=== PATIENT | male | born 1955 | race Caucasian/White ===

== ENCOUNTER 2016-09-16 10:49 | Emergency (ER) | payer OTHER ==
[2016-09-16 11:27] LABS: Hematocrit 43.4 % (42.0-52.0); Mean Corpuscular Hemoglobin 28.4 pg (27-31); Mean Corpuscular Hgb Conc 32.3 g/dl (32-36); Mean Platelet Volume 10.5 fl (6.0-9.5); Neutrophil # 14.5 K/mm3 (1.3-6.0); Neutrophil % 78.2 % (42-75.0); Platelet Count 324 K/mm3 (150-450); Red Blood Count 4.93 M/mm3 (4.7-6.0); Red Cell Distribution Width 13.7 % (11.5-14.0); White Blood Count 18.6 K/mm3 (4.0-10.5)
--- OUTSIDE RECORDS SUMMARY | 2016-09-16 11:27 | XMS REPORT | Summary of Care ---
:1955 Author Organization [facility] Address [address] [place] [address] Care Team Providers Name Role Phone Brinda Lafleur Primary Care Physician Encounter Date(s): 04/30/16 - 04/30/[address] [facility], [address] [place], [place] [address] Discharge Diagnosis: COPD, severe Discharge Disposition: Discharged to Home or Self Care Attending Physician: Rupa Graves MD Referring Physician: Brinda Lafleur DO Vital Signs Most recent to oldest [Reference Range]: 1 Temperature Tympanic [36.6-38.1 DegC] 37 DegC (04/30/16 8:14 AM) Temperature C to F 98.6 (04/30/16 8:14 AM) Peripheral Pulse Rate [60-100 bpm] 92 bpm (04/30/16 8:14 AM) Respiratory Rate [12-20 br/min] 18 br/min (04/30/16 8:14 AM) SpO2 [90-100 %] 95 % (04/30/16 8:14 AM) SpO2 Location Left hand (04/30/16 8:14 AM) Blood Pressure [90-130/60-90 mmHg] 162/101mmHg *HI* (04/30/16 8:14 AM) Mean Arterial Pressure, Cuff 121 mmHg (04/30/16 8:14 AM) Most recent to oldest [Reference Range]: 1 Height/Length Measured 186 cm (04/30/16 8:14 AM) Weight Dosing 110.1 kg (04/30/16 8:14 AM) Weight Measured 110.1 kg (04/30/16 8:14 AM) BSA Measured 2.34 m2 (04/30/16 8:14 AM) Body Mass Index Measured 31.82 kg/m2 (04/30/16 8:14 AM) Problem List Condition Effective Dates Status Health Status Informant Acute myocardial infarction(Confirmed) Active Chest pain(Confirmed) Active Elevated PSA(Confirmed) Active Allergies, Adverse Reactions, Alerts Substance Reaction Severity Status penicillins Hives Mild Active Plavix Hives Active Medications Anoro Ellipta 62.5 mcg-25 mcg/inh inhalation powder 1 puff(s), Inhale, Daily, # 1 EA, 11 Refill(s), Start Date: 04/30/16 9:03:00 [employer] , Samples: 2, Pharmacy: [place], [place], [id number], 06/23/17 Start Date: 04/30/16 Stop Date: 04/25/17 Status: Orderedaspirin 325 mg oral tablet 1 tab(s), Oral, Daily, 0 Refill(s) Start Date: 07/28/13 Status: OrderedChantix Starter Pack 0.5 mg-1 mg oral tablet 1 tab(s), Oral, BID, as directed on package labeling, # 53 tab(s), 0 Refill(s), Start Date: 04/30/16 9:06:00 [employer], Pharmacy: [place], [place] Special Instructions: as directed on package labeling Start Date: 04/30/16 Status: OrderedCrestor 20 mg oral tablet 1 tab(s), Oral, HS, 0 Refill(s) Start Date: 07/28/13 Status: Orderedfluticasone 50 mcg/inh nasal spray 2 spray(s), Nasal, Daily, # 1 EA, 5 Refill(s), Start Date: 04/30/16 9:08:00 [employer] , Pharmacy: [place], [place] Start Date: 04/30/16 Stop Date: 10/27/16 Status: Orderedlisinopril 2.5 mg oral tablet 1 tab(s), Oral, Daily, # 30 tab(s), 0 Refill(s), Start Date: 04/30/16 8:19:00 [employer] Start Date: 04/30/16 Status: OrderedMedrol Dosepak 4 mg oral tablet 1 packet(s), Oral, Per Package Label, as directed on package labeling, # 21 tab( s), 0 Refill(s), Start Date: 04/30/16 9:07:00 [employer], Pharmacy: [place], [place] Special Instructions: as directed on package labeling Start Date: 04/30/16 Stop Date: 05/06/16 Status: Orderedmetoprolol tartrate 12.5 mg 1/2 of 25 mg oral tablet 0 Refill(s), Start Date: 04/30/16 8:18:00 [employer] Start Date: 04/30/16 Status: OrderedNexIUM 40 mg oral delayed release capsule 1 cap(s), Oral, Daily, 0 Refill(s) Start Date: 07/28/13 Status: Orderednitroglycerin 0.4 mg sublingual tablet 1 tab(s), SL, q5min, PRN for chest pain, If chest pain not relieved within 5 minutes of taking the 1st dose, seek immediate medical attention, # 100 tab(s), 0 Refill(s) Special Instructions: If chest pain not relieved within 5 minutes of taking the 1st dose, seek immediate medical attention Start Date: 07/28/13 Status: OrderedProAir HFA 90 mcg/inh inhalation aerosol 2 puff(s), Inhale, QID, PRN as needed for wheezing, # 1 EA, 6 Refill(s), Start Date: 04/30/16 9:06:00 [employer], Pharmacy: [place], [place] Start Date: 04/30/16 Stop Date: 11/26/16 Status: OrderedPulmicort Flexhaler 180 mcg/inh inhalation powder 180 mcg=, Inhale, BID, # 1 EA, 11 Refill(s), Samples: 2, Pharmacy: [place], [place] Start Date: 04/30/16 Stop Date: 04/25/17 Status: OrderedSymbicort 80 mcg-4.5 mcg/inh inhalation aerosol 2 puff(s), Inhale, BID, # 7 gm, 0 Refill(s), Start Date: 04/30/16 8:19:00 [employer] Start Date: 04/30/16 Stop Date: 04/30/16 Status: CompletedZithromax Z-Froilan 250 mg oral tablet 1 packet(s), Oral, Per Package Label, as directed on package labeling, # 6 tab(s ), 0 Refill(s), Start Date: 04/30/16 9:07:00 [employer], Pharmacy: [place], [place] Special Instructions: as directed on package labeling Start Date: 04/30/16 Stop Date: 05/05/16 Status: Ordered Results Patient Viewable Results Most recent to oldest [Reference Range]: 1 FIO2 21 % (04/30/16 8:14 AM) Immunizations Vaccine Date Refusal Reason pneumococcal 23-polyvalent vaccine 11/03/12 Procedures Procedure Date Related Diagnosis Body Site Appendectomy Number of stent(s) 3 Social History No data available for this section Assessment and Plan No data available for this section
--- OUTSIDE RECORDS SUMMARY | 2016-09-16 11:27 | XMS REPORT | Summary of Care ---
:1955 Author Organization [facility] Address [facility] [place] [address]- Care Team Providers Name Role Phone CynthiaGina hesteromero Cervantes Primary Care Physician Encounter Date(s): 05/03/16 - 05/03/16 [facility] [address] [place] [id number] Discharge Disposition: Discharged to Home or Self Care Attending Physician: Rupa Graves MD Admitting Physician: Rupa Graves MD Vital Signs No data available for this section Problem List Condition Effective Dates Status Health Status Informant Acute myocardial infarction(Confirmed) Active Chest pain(Confirmed) Active Elevated PSA(Confirmed) Active Allergies, Adverse Reactions, Alerts Substance Reaction Severity Status penicillins Hives Mild Active Plavix Hives Active Medications Anoro Ellipta 62.5 mcg-25 mcg/inh inhalation powder 1 puff(s), Inhale, Daily, # 1 EA, 11 Refill(s), Start Date: 04/30/16 9:03:00 [employer]IST , Samples: 2, Pharmacy: [facility] [place], [id number], 06/23/17 Start Date: 04/30/16 Stop Date: 04/25/17 Status: Orderedaspirin 325 mg oral tablet 1 tab(s), Oral, Daily, 0 Refill(s) Start Date: 07/28/13 Status: OrderedChantix Starter Pack 0.5 mg-1 mg oral tablet 1 tab(s), Oral, BID, as directed on package labeling, # 53 tab(s), 0 Refill(s), Start Date: 04/30/16 9:06:00 [employer], Pharmacy: [facility] [place] Special Instructions: as directed on package labeling Start Date: 04/30/16 Status: OrderedCrestor 20 mg oral tablet 1 tab(s), Oral, HS, 0 Refill(s) Start Date: 07/28/13 Status: Orderedfluticasone 50 mcg/inh nasal spray 2 spray(s), Nasal, Daily, # 1 EA, 5 Refill(s), Start Date: 04/30/16 9:08:00 [employer] , Pharmacy: [place], [place] Start Date: 04/30/16 Stop Date: 10/27/16 Status: Orderedlisinopril 2.5 mg oral tablet 1 tab(s), Oral, Daily, # 30 tab(s), 0 Refill(s), Start Date: 04/30/16 8:19:00 [employer] Start Date: 04/30/16 Status: OrderedMedrol Dosepak 4 mg oral tablet 1 packet(s), Oral, Per Package Label, as directed on package labeling, # 21 tab( s), 0 Refill(s), Start Date: 04/30/16 9:07:00 [employer], Pharmacy: [place], [place] Special Instructions: as directed on package labeling Start Date: 04/30/16 Stop Date: 05/06/16 Status: Orderedmetoprolol tartrate 12.5 mg 1/2 of 25 mg oral tablet 0 Refill(s), Start Date: 04/30/16 8:18:00 [employer] Start Date: 04/30/16 Status: OrderedNexIUM 40 mg [...] EA, 6 Refill(s), Start Date: 04/30/16 9:06:00 [employer], Pharmacy: [place] Start Date: 04/30/16 Stop Date: 11/26/16 Status: OrderedPulmicort Flexhaler 180 mcg/inh inhalation powder 180 mcg=, Inhale, BID, # 1 EA, 11 Refill(s), Samples: 2, Pharmacy: [place], [place] Start Date: 04/30/16 Stop Date: 04/25/17 Status: OrderedSymbicort 80 mcg-4.5 mcg/inh inhalation aerosol 2 puff(s), Inhale, BID, # 7 gm, 0 Refill(s), Start Date: 04/30/16 8:19:00 [employer] Start Date: 04/30/16 Stop Date: 04/30/16 Status: CompletedZithromax Z-Froilan 250 mg oral tablet 1 packet(s), Oral, Per Package Label, as directed on package labeling, # 6 tab(s ), 0 Refill(s), Start Date: 04/30/16 9:07:00 [employer], Pharmacy: [place], [place] Special Instructions: as directed on package labeling Start Date: 04/30/16 Stop Date: 05/05/16 Status: Ordered Results No data available for this section Immunizations Vaccine Date Refusal Reason pneumococcal 23-polyvalent vaccine 11/03/12 Procedures Procedure Date Related Diagnosis Body Site Appendectomy Number of stent(s) 3 Social History No data available for this section Assessment and Plan No data available for this section
--- OUTSIDE RECORDS SUMMARY | 2016-09-16 11:27 | XMS REPORT | Summary of Care ---
:1955 Author Organization [facility] Address [address] [place] [address] Care Team Providers Name Role Phone Brinda Lafleur Primary Care Physician Encounter Date(s): 05/15/16 - 05/15/16 [facility], [address] [place], [place] [address] Discharge Disposition: 01 Discharged to Home or Self Care Attending Physician: Rupa Graves MD Referring Physician: Rupa Graves MD Vital Signs Most recent to oldest [Reference Range]: 1 Temperature Tympanic [36.6-38.1 DegC] 36.7 DegC (05/15/16 2:07 PM) Temperature C to F 98.1 (05/15/16 2:07 PM) Peripheral Pulse Rate [60-100 bpm] 91 bpm (05/15/16 2:07 PM) Respiratory Rate [12-20 br/min] 18 br/min (05/15/16 2:07 PM) SpO2 [90-100 %] 96 % (05/15/16 2:07 PM) SpO2 Location Right hand (05/15/16 2:07 PM) Blood Pressure [90-130/60-90 mmHg] 130/83mmHg (05/15/16 2:07 PM) Mean Arterial Pressure, Cuff 99 mmHg (05/15/16 2:07 PM) Most recent to oldest [Reference Range]: 1 Weight Dosing 111.0 kg (05/15/16 2:07 PM) Weight Measured 111.0 kg (05/15/16 2:07 PM) Problem List Condition Effective Dates Status Health Status Informant Acute myocardial infarction(Confirmed) Active Chest pain(Confirmed) Active Elevated PSA(Confirmed) Active Allergies, Adverse Reactions, Alerts Substance Reaction Severity Status penicillins Hives Mild Active Plavix Hives Active Medications Anoro Ellipta 62.5 mcg-25 mcg/inh inhalation powder 1 puff(s), Inhale, Daily, # 1 EA, 11 Refill(s), Start Date: 04/30/16 9:03:00 FLORIST , Samples: 2, Pharmacy: [place], [place], [id number], 06/23/17 Start Date: 04/30/16 Stop Date: 04/25/17 Status: Orderedaspirin 325 mg oral tablet 1 tab(s), Oral, Daily, 0 Refill(s) Start Date: 07/28/13 Status: OrderedChantix Starter Pack 0.5 mg-1 mg oral tablet 1 tab(s), Oral, BID, as directed on package labeling, # 53 tab(s), 0 Refill(s), Start Date: 04/30/16 9:06:00 FLORIST, Pharmacy: [place], [place] Special Instructions: as directed on package labeling Start Date: 04/30/16 Stop Date: 05/15/16 Status: DiscontinuedCrestor 20 mg oral tablet 2 tab(s), Oral, HS, 0 Refill(s), Start Date: 07/28/13 14:36:00 CDT Start Date: 07/28/13 Status: Orderedfluticasone 50 mcg/inh nasal spray 2 spray(s), Nasal, Daily, # 1 EA, 5 Refill(s), Start Date: 04/30/16 9:08:00 FLORIST , Pharmacy: [place], [place] Start Date: 04/30/16 Stop Date: 10/27/16 Status: Orderedlisinopril 2.5 mg oral tablet 1 tab(s), Oral, Daily, # 30 tab(s), 0 Refill(s), Start Date: 04/30/16 8:19:00 [employer]ORIST Start Date: 04/30/16 Status: OrderedMedrol Dosepak 4 mg oral tablet 1 packet(s), Oral, Per Package Label, as directed on package labeling, # 21 tab( s), 0 Refill(s), Start Date: 04/30/16 9:07:00 FLORIST, Pharmacy: [place], [place] Special Instructions: as directed on package labeling Start Date: 04/30/16 Stop Date: 05/15/16 Status: Completedmetoprolol tartrate 12.5 mg 1/2 of 25 mg oral tablet 0 Refill(s), Start Date: 04/30/16 8:18:00 FLORIST Start Date: 04/30/16 Status: OrderedNexIUM 40 mg oral delayed release capsule 1 cap(s), Oral, Daily, 0 Refill(s) Start Date: 07/28/13 Status: Orderednicotine 21 mg/24 hr transdermal film, extended release 1 patch(es), Topical, Daily, X 30 days, # 30 patch(es), 0 Refill(s), Start Date : 05/15/16 15:00:00 CDT, Pharmacy: [place], [place] Start Date: 05/15/16 Stop Date: 06/14/16 Status: Orderednitroglycerin 0.4 mg sublingual tablet 1 [...] EA, 6 Refill(s), Start Date: 04/30/16 9:06:00 FLORIST, Pharmacy: [place], [place] Start Date: 04/30/16 Stop Date: 11/26/16 Status: OrderedPulmicort Flexhaler 180 mcg/inh inhalation powder 180 mcg=, Inhale, BID, # 1 EA, 11 Refill(s), Samples: 2, Pharmacy: [place] Start Date: 04/30/16 Stop Date: 04/25/17 Status: OrderedSymbicort 80 mcg-4.5 mcg/inh inhalation aerosol 2 puff(s), Inhale, BID, # 7 gm, 0 Refill(s), Start Date: 04/30/16 8:19:00 FLORIST Start Date: 04/30/16 Stop Date: 04/30/16 Status: CompletedWellbutrin SR 150 mg/12 hours oral tablet, extended release See Instructions, 150mg daily x 3d then increase to twice daily, # 56 tab(s), 0 Refill(s), Start Date: 05/15/16 14:59:00 CDT, Pharmacy: [place], [place] Special Instructions: 150mg daily x 3d then increase to twice daily Start Date: 05/15/16 Status: OrderedZithromax Z-Froilan 250 mg oral tablet 1 packet(s), Oral, Per Package Label, as directed on package labeling, # 6 tab(s ), 0 Refill(s), Start Date: 04/30/16 9:07:00 FLORIST, Pharmacy: [place], [place] Special Instructions: as directed on package labeling Start Date: 04/30/16 Stop Date: 05/15/16 Status: Completed Results Patient Viewable Results Most recent to oldest [Reference Range]: 1 FIO2 21 % (05/15/16 2:07 PM) Immunizations Vaccine Date Refusal Reason influenza virus vaccine, inactivated1 05/15/16 pneumococcal 23-polyvalent vaccine 11/03/12 1Result Comment: Fluvirin given IM in left deltoid. Lot # [id number], exp 2016. Pt tolerated injection well. Procedures Procedure Date Related Diagnosis Body Site Appendectomy Number of stent(s) 3 Social History No data available for this section Assessment and Plan No data available for this section
[2016-09-16 11:42] LABS: Albumin * 3.1 gm/dl (3.4-5.0); Anion Gap 11.6 mmol/L (6.8-13.8); BUN/Creatinine Ratio 9.8 (9.0-21.6); Bilirubin, Total 0.4 mg/dL (0.0-1.1); Ca. Corrected For Albumin 9.3 mg/dL (8.4-10.2); Calcium * 8.9 mg/dL (7.9-10.9); Carbon Dioxide 31.3 mmol/L (24-32.6); Potassium 3.9 mmol/L (3.4-4.6); Total Protein 7.9 gm/dL (6.2-8.2)
--- NOTE | 2016-09-16 11:47 | ERNOTE ---
Dyspnea - Date Date of Service: 09/16/16 - General Presenting Symptoms: shortness of breath Time Seen by Provider: 09/16/16 11:14 Source: patient, family, RN notes reviewed, old records Exam Limitations: no limitations - Immun/Allergies/Home Medications Immunizations: IMMUNIZATION HX Immunizations Up to Date Yes History of Influenza Vaccine Yes Hx Pneumococcal Vaccination Yes Allergies/Adverse Reactions: Allergies penicillin G Allergy (Mild, Verified 01/20/15 16:59) rash Home Medications: HOME MEDICATIONS Aspirin [Aspir-Low] 325 mg PO DAILY 02/20/12 [Last Taken 01/20/15 07:00] Esomeprazole Magnesium [Nexium] 40 mg PO DAILY 02/20/12 [Last Taken 01/20/15 07: 00] Rosuvastatin Calcium [Crestor] 40 mg PO DAILY 02/20/12 [Last Taken 01/20/15 07: 00] Ubidecarenone/Vit E Acet [Co Q-10 100 mg Softgel] 1 each PO DAILY 01/20/15 [ Last Taken 01/20/15 07:00] Azithromycin [Zithromax] 250 mg PO DAILY #4 tablet 09/16/16 [Last Taken Unknown] Budesonide [Pulmicort Flexhaler] 180 mcg IH PRN 09/16/16 [Last Taken Unknown] Clindamycin HCl [Cleocin] 150 mg PO Q6H 09/16/16 [Last Taken Unknown] predniSONE [Prednisone] 2 tab PO DAILY #14 tab 09/16/16 [Last Taken Unknown] - History of Present Illness Narrative: Felipe is a 61-year-old male who presents to the emergency Department by private vehicle for a cough and shortness of breath that began 8 days ago. He initially felt like he had a cold. He had a sore throat and nasal congestion. His throat pain has improved, but he continues to have some nasal congestion and frontal sinus pressure. He has had a fever as high as 101. He is having a frequent cough and occasional shortness of breath. He denies any chest pain. He is a lifelong smoker and had stopped smoking the day before his symptoms began. He has COPD. Date (Duration): 09/08/16 Prior Treatment: Denies: recently seen, currently on antibiotics Review of Systems - Review of Systems Constitutional: Present: fever, fatigue, malaise. Absent: recent illness EYE: Present: no symptoms reported ENT: Present: nose congestion, nasal drainage. Absent: ear pain, sore throat Respiratory: Present: shortness of breath, cough, wheezing. Absent: orthopnea Cardiology: Absent: chest pain, palpitations, edema Gastrointestinal/Abdominal: Absent: nausea, abdominal pain Genitourinary: Absent: frequency, dysuria Musculoskeletal: Absent: back pain, muscle pain Skin: Absent: rash, lesions Neurological: Present: headache. Absent: dizziness/light-headedness Endocrine: Present: no symptoms reported Hematologic/Lymphatic: Absent: easy bruising, easy bleeding Psych: Absent: anxiety, depressed - Patient's Past Medical History Patient History - Medical: GERD Patient History - Cardiac/Respiratory: COPD, Hyperlipidemia, Myocardial Infarction Patient History - Cancer: No Hx of Cancer Patient History - Surgical Procedures: Appendectomy, Cardiac stent, T & A Patient History - Other: None - Family History Father Family History - Cardiac/Respiratory: Myocardial Infarction Mother Family History - Medical: No pertinent hx - Social History Living Situations: spouse Abuse History: No History of abuse Psych History: No pertinent hx Smoking Status: Former smoker Have you smoked in the past 12 months: Yes Do you dip or chew tobacco: No Alcohol Use: occasionally Drug Use: none - Immunizations Immunizations Up to Date: Yes Hx Pneumococcal Vaccination: Yes History of Influenza Vaccine: Yes Physical Exam - Physical Exam General Appearance: Present: wd/wn, alert, no apparent distress Head Exam: Present: normal inspection Ears, Nose, Throat: Present: hearing decreased, nasal congestion, sinus pain/ drainage, pharyngeal erythema. Absent: abnormal TM (R), abnormal TM (L), pharyngeal swelling Neck: Present: normal inspection, nontender, supple Respiratory: Present: no respiratory distress, no accessory muscle use, decreased breath sounds, expiration (prolonged), wheezing Cardiovascular/Chest: Present: regular rate, rhythm, no murmur Extremity Exam: Present: normal inspection, normal range of motion Neurological Exam: Present: alert, oriented, normal mood/affect, no motor/ sensory deficits Skin Exam: Present: normal color, warm/dry ED Progress - Results and Orders Patient's Lab Results:: I have reviewed the patient's lab results. - Vital Signs Patient's Vital Signs:: I have reviewed the patient's vital signs. Vital Signs: Vital Signs 09/16/16 11:02 Temperature 36.8 C Pulse Rate 76 Respiratory 20 Rate Blood Pressure 126/71 O2 Sat by Pulse 89 L Oximetry - X-Ray X-Ray #1 X-Ray: chest Interpretation: Reviewed by me X-ray Comments: IMPRESSION: COPD. GRANULOMATOUS DISEASE. INTERSTITIAL PROMINENCE. NO ACUTE CARDIOPULMONARY DISEASE OTHERWISE IDENTIFIED. Electronically signed by Oseas Carlos M.D.. - Progress/Reassessment Chief Complaint: Dyspnea Departure Clinical Impression: COPD with acute exacerbation - Departure Disposition: Home Follow Up Needed Condition: Stable Instructions: Chronic Obstructive Pulmonary Disease Exacerbation Additional Instructions: Continue your routine medications Use your inhaler if needed Return for worsening symptoms, or follow up with your doctor if symptoms persist Referrals: Brinda Lafleur DO [Primary Care Provider] - Prescriptions: Azithromycin [Zithromax] 250 mg PO DAILY #4 tablet predniSONE [Prednisone] 2 tab PO DAILY #14 tab
[2016-09-16] MEDS ORDERED: ALBUTEROL SULFATE/IPRATROPIUM 3 ML NEBU IH ONE ×2 (12:02→12:05)
[2016-09-16] MEDS ORDERED: AZITHROMYCIN 250 MG TABLET PO ONE (12:02)
[2016-09-16] MEDS ORDERED: AZITHROMYCIN 250 MG TABLET ONE (12:05)
[2016-09-16 12:13] VITALS: BP 136/76
== END 2016-09-16 12:32 | disposition home or self-care (01) ==
LOC: ER 10:49
DX: J44.1 Chronic obstructive pulmonary disease with (acute) exacerbation (principal); R50.9 Fever, unspecified; Z87.891 Personal history of nicotine dependence